=== PATIENT | male | born 1975 | race Caucasian/White ===

== ENCOUNTER 2018-07-05 08:27 | Emergency (ER) | payer SELFPAY ==
[2018-07-05 08:59] LABS: PLATELET COUNT 194 10^3/uL (150-400)
--- NOTE | 2018-07-05 09:00 | EDPHY ---
H & P Stated Complaint: palpitations and elevated blood pressure since last night Time Seen by Provider: 07/05/18 08:46 HPI/ROS: CHIEF COMPLAINT: Palpitations HISTORY OF PRESENT ILLNESS: 43-year-old male with hypertension presents with palpitations. Onset of palpitations last evening while watching TV. The heart rate was irregular, but not fast. He awoke in the middle of the night with similar symptoms. Resolved now. No chest pain, dizziness or shortness of breath. No prior history of similar symptoms. REVIEW OF SYSTEMS: complete 10 point ROS reviewed and is negative except for the noted elements in the HPI - Medical/Surgical History Hx Asthma: No Hx Chronic Respiratory Disease: No Hx Diabetes: No Hx Cardiac Disease: Yes Hx Renal Disease: No Hx Cirrhosis: No Hx Alcoholism: No Hx HIV/AIDS: No Hx Splenectomy or Spleen Trauma: No Other PMH: CVA 2016. htn - Social History Smoking Status: Never smoked Alcohol Use: Occasionally Drug Use: None Additional Social History: PCP: Dr. Pete - Physical Exam Exam: General Appearance: Alert, pleasant Eyes: Pupils equal and round, no conjunctival pallor ENT, Mouth: Mucous membranes moist Neck: Normal inspection Respiratory: Lungs are clear to auscultation Cardiovascular: Regular rate and rhythm, no murmur Gastrointestinal: Abdomen is soft and nontender Neurological: A&O, nonfocal, normal gait Skin: Warm and dry, no rash Extremities: Nontender, no pedal edema Psychiatric: Mood and affect normal Constitutional: Initial Vital Signs Temperature (C) 36.8 C 07/05/18 08:35 Heart Rate 99 07/05/18 08:35 Respiratory Rate 16 07/05/18 08:35 Blood Pressure 151/92 H 07/05/18 08:35 O2 Sat (%) 97 07/05/18 08:35 O2 Delivery Mode Room Air Allergies/Adverse Reactions: No Known Allergies Allergy (Unverified 07/05/18 08:33) Home Medications: Medication Instructions Recorded Atorvastatin Calcium 07/05/18 HCTZ (*) 07/05/18 Lisinopril 07/05/18 Medical Decision Making - Diagnostics EKG Interpretation: EKG interpreted by me reveals normal sinus rhythm, rate 84, LVH with secondary repolarization abnormality. Interpretation: Abnormal EKG ED Course/Re-evaluation: This patient presents with palpitations. Stat EKG reveals no evidence of ischemia or dysrhythmia. property assessment monitor reveals normal sinus rhythm throughout. Hyperglycemia discussed with the patient, dietary instructions given. Hemoglobin A1c the ordered. Will follow up with PCP. Differential Diagnosis: Includes though is not limited to SVT, atrial fibrillation, ventricular dysrhythmia. - Data Points Laboratory Results: Laboratory Results 07/05/18 08:30 07/05/18 08:30 07/05/18 07/05/18 07/05/18 08:54 08:30 08:30 WBC RBC Hgb Hct MCV MCH MCHC RDW Plt Count MPV Neut % (Auto) Lymph % (Auto) [place] % (Auto) Eos % (Auto) Baso % (Auto) Nucleat RBC Rel Count Absolute Neuts (auto) Absolute Lymphs (auto) Absolute Monos (auto) Absolute Eos (auto) Absolute Basos (auto) Absolute Nucleated RBC Immature Gran % Immature Gran # Sodium 141 mEq/L mEq/L (135-145) Potassium 4.6 mEq/L mEq/L (3.3-5.0) Chloride 104 mEq/L mEq/L (97-110) Carbon Dioxide 28 mEq/l mEq/l (22-31) Anion Gap 9 mEq/L mEq/L (6-14) BUN 27 mg/dL H mg/dL (7-23) Creatinine 1.1 mg/dL mg/dL (0.7-1.3) Estimated GFR > 60 Glucose 153 mg/dL H mg/dL (70-100) Hemoglobin A1c Pending Estim Average Glucose Pending Calcium 10.2 mg/dL mg/dL (8.5-10.4) POC Troponin I 0.04 ng/mL ng/mL (0.00-0.08) 07/05/18 08:30 WBC 7.14 10^3/uL 10^3/uL (3.80-9.50) RBC 6.97 10^6/uL H 10^6/uL (4.40-6.38) Hgb 19.7 g/dL H g/dL (13.7-17.5) Hct 58.6 % H % (40.0-51.0) MCV 84.1 fL fL (81.5-99.8) MCH 28.3 pg pg (27.9-34.1) MCHC 33.6 g/dL g/dL (32.4-36.7) RDW 16.4 % H % (11.5-15.2) Plt Count 194 10^3/uL 10^3/uL (150-400) MPV 10.7 fL fL (8.7-11.7) Neut % (Auto) 51.5 % % (39.3-74.2) Lymph % (Auto) 31.4 % % (15.0-45.0) [place] % (Auto) 10.2 % % (4.5-13.0) Eos % (Auto) 5.5 % % (0.6-7.6) Baso % (Auto) 1.1 % % (0.3-1.7) Nucleat RBC Rel Count 0.0 % % (0.0-0.2) Absolute Neuts (auto) 3.68 10^3/uL 10^3/uL (1.70-6.50) Absolute Lymphs (auto) 2.24 10^3/uL 10^3/uL (1.00-3.00) Absolute Monos (auto) 0.73 10^3/uL 10^3/uL (0.30-0.80) Absolute Eos (auto) 0.39 10^3/uL 10^3/uL (0.03-0.40) Absolute Basos (auto) 0.08 10^3/uL 10^3/uL (0.02-0.10) Absolute Nucleated RBC 0.00 10^3/uL 10^3/uL (0-0.01) Immature Gran % 0.3 % % (0.0-1.1) Immature Gran # 0.02 10^3/uL 10^3/uL (0.00-0.10) Sodium Potassium Chloride Carbon Dioxide Anion Gap BUN Creatinine Estimated GFR Glucose Hemoglobin A1c Estim Average Glucose Calcium POC Troponin I Point of Care Test Results: Chemistry 07/05/18 08:54 POC Troponin I 0.04 ng/mL ng/mL (0.00-0.08) Departure - Departure Disposition: Home, Routine, Self-Care Clinical Impression: Palpitations, Hyperglycemia Condition: Good Instructions: Heart Palpitations (ED) Additional Instructions: Your blood sugar is elevated today. Glucose is 153. You may have diabetes. Discussed this with your physician. Referrals: Jere Pete MD [Primary Care Provider] - 2-3 days, call for appt.
[2018-07-05 09:37] VITALS: BP 160/100
--- NOTE | 2018-07-05 13:12 | CPEKG ---
Test Reason : OPEN Blood Pressure : / mmHG Vent. Rate : 084 BPM Atrial Rate : 084 BPM P-R Int : 144 ms QRS Dur : 108 ms QT Int : 358 ms P-R-T Axes : 054 -35 073 degrees QTc Int : 424 ms Sinus rhythm Probable left atrial enlargement Incomplete left bundle branch block LVH with secondary repolarization abnormality Anterior ST elevation, probably due to LVH Confirmed by Serene Hubbard ([id number]) on 07/05/2018 1:11:28 PM Referred By: Confirmed By:Serene Hubabrd
== END 2018-07-05 09:37 | disposition home or self-care (01) ==
DX: R00.2 Palpitations (principal); R73.9 Hyperglycemia, unspecified
CPT/HCPCS: 84484-PO